=== PATIENT | female | born 1975 | race Caucasian/White ===

== ENCOUNTER 2016-11-27 12:44 | Emergency (ER) | payer OTHER ==
[~2016-11-27] VITALS: Ht 167.6 cm; Wt 72.7 kg
[2016-11-27] MEDS ORDERED: SODIUM CHLORIDE FLUSH 10ML SYR IVF ONE (13:00)
[2016-11-27] MEDS ORDERED: ONDANSETRON 2MG/ML, 2ML IVPush ONE (13:00)
[2016-11-27] MEDS ORDERED: SODIUM CHLORIDE 0.9% 1,000ML IVBOLUS ONE ×2 (13:00)
[2016-11-27] MEDS ORDERED: vibrid PO (13:06)
[2016-11-27] MEDS ORDERED: ONDANSETRON 2MG/ML, 2ML ONE (13:09)
[2016-11-27] MEDS ORDERED: MECLIZINE CHEWABLE 25 MG TAB PO ONE (13:30)
[2016-11-27 13:33] LABS: BLOOD UREA NITROGEN 11 mg/dL (7-18)
[2016-11-27] MEDS ORDERED: MECLIZINE CHEWABLE 25 MG TAB ONE (14:25)
[2016-11-27 15:48] VITALS: BP 109/65
== END 2016-11-27 15:51 | disposition home or self-care (01) ==
LOC: ED 15:00
DX: R55 Syncope and collapse (principal); R11.2 Nausea with vomiting, unspecified; R42 Dizziness and giddiness; Z90.710 Acquired absence of both cervix and uterus
CPT/HCPCS: 36415; 71010; 74020; 80048; 81001; 82040; 85025; 87086; 93005; 96361; 96374; 99285; J2405; J7030

== ENCOUNTER → 2017-10-24 | Outpatient (CLI) | payer OTHER ==
[~2017-10-24] MED LIST: vibrid PO
== END | disposition home or self-care (01) ==
LOC: CFH 07:14
PROVIDERS: ATTEND Genetic Counselor, MS
DX: Z12.31 Encounter for screening mammogram for malignant neoplasm of breast (principal); Z80.3 Family history of malignant neoplasm of breast
CPT/HCPCS: 77063; 77067

== ENCOUNTER → 2018-10-30 | Outpatient (CLI) | payer OTHER | END | disposition home or self-care (01) | LOC: CFH 14:04 | PROVIDERS: ATTEND Genetic Counselor, MS | DX: Z12.31 Encounter for screening mammogram for malignant neoplasm of breast (principal) | CPT/HCPCS: 77063; 77067 ==

== ENCOUNTER 2020-01-28 14:39 | Outpatient (CLI) | payer OTHER | END 2020-01-28 23:59 | disposition home or self-care (01) | LOC: CFH 14:39 | PROVIDERS: ATTEND Genetic Counselor, MS | DX: Z12.31 Encounter for screening mammogram for malignant neoplasm of breast (principal) | CPT/HCPCS: 77063; 77067 ==